=== PATIENT | female | born 2000 | race African-American/Black ===

== ENCOUNTER 2024-06-04 11:41 | Outpatient (RCR) | payer OTHER, SELFPAY ==
[2024-06-04 13:28] LABS: HCG Quantitative 62 mIU/mL
[2024-06-07 11:23] LABS: HCG Quantitative 239 mIU/mL
== END 2024-06-21 11:33 | disposition home or self-care (01) ==
LOC: LAB 11:41
PROVIDERS: PCP Internal Medicine; Visit Provider Obstetrics & Gynecology
DX: N92.6 Irregular menstruation, unspecified (principal); Z87.59 Personal history of other complications of pregnancy, childbirth and the puerperium
CPT/HCPCS: 36415; 84702

== ENCOUNTER 2024-06-30 15:48 | Outpatient (OUT) | payer OTHER, SELFPAY ==
--- NOTE | 2024-06-30 15:49 | US_ITS ---
The [address] [address] Patient Name: MALCOLM PARIS MRN: [id number] date: 2000 Sex: F Assigned Patient Location: Current Patient Location: Accession/Order Number: [id number] Exam Date: 06/30/2024 16:04 Report Date: 07/01/2024 04:22 At the request of: JOSE CARLOS OSORIO Procedure: US OB transvaginal EXAMINATION: US OB transvaginal HISTORY: Missed menses. Abdominal pain. COMPARISON: No relevant comparison available. FINDINGS: GESTATIONAL SAC: Present and normal appearing. YOLK SAC: Present and normal appearing. POLE: Present and normal appearing. CARDIAC: Present. UTERUS: Normal size and appearance. OVARIES: Right: Corpus lutein cyst versus simple cyst. Left: Corpus lutein versus complex cyst CERVIX: 4.5 cm in length and closed. CUL-DE-SAC: Normal. OTHER: None. AGE BY LMP: 6 weeks 6 days SAMINA BY LMP: 02/17/2025 AGE BY US CRL: 7 weeks 2 days SAMINA BY US CRL: 02/14/2025 US/US OB transvaginal IMPRESSION: 1. Single live intrauterine . Electronically authenticated by: SIMIN ALVARADO Date: 07/01/2024 04:22
== END 2024-06-30 15:49 | disposition home or self-care (01) ==
LOC: US 15:48
PROVIDERS: PCP Internal Medicine; Visit Provider Obstetrics & Gynecology
DX: Z34.91 Encounter for supervision of normal pregnancy, unspecified, first trimester (principal); Z3A.01 Less than 8 weeks gestation of pregnancy; N92.6 Irregular menstruation, unspecified; R10.9 Unspecified abdominal pain
CPT/HCPCS: 76817

== ENCOUNTER 2024-07-20 10:54 | Outpatient (OUT) | payer OTHER, SELFPAY ==
--- OUTSIDE RECORDS SUMMARY | 2024-07-20 11:00 | XMS_ITS | CCD ---
Author Organization [facility] Care Team Providers Care Trial Judge Name Role Phone ANA Riley Attending Provider [phone] Berenice Riley Attending Unavailable Berenice Riley Admitting Unavailable HIESTAND, DR POLI Muse Primary Care Unavailable GERGG ., DR BRANCH Admitting Unavailable GREGG ., DR BRANCH Attending Unavailable GREGG ., DR BRANCH Consulting Unavailable HIESTAND, DR POLI Muse Primary Care Unavailable YO VALENZUELA Admitting Unavailable YO VALENZUELA Attending Unavailable YO VALENZUELA Consulting Unavailable MAGDALENE, WINCHA Consulting Unavailable GREGG ., DR BRANCH Admitting Unavailable GREGG ., DR BRANCH Attending Unavailable HIESTAND, DR POLI Muse Primary Care Unavailable GREGG ., DR BRANCH Admitting Unavailable GREGG ., DR BRANCH Attending Unavailable GREGG ., DR BRANCH Consulting Unavailable HIESTAND, DR POLI Muse Primary Care Unavailable GREGG ., DR BRANCH Admitting Unavailable GREGG ., DR BRANCH Attending Unavailable GREGG ., DR BRANCH Consulting Unavailable HIESTAND, DR POLI Muse Primary Care Unavailable HIESTAND, DR POLI Muse Primary Care Unavailable GREGG ., DR BRANCH Admitting Unavailable GREGG ., DR BRANCH Attending Unavailable GREGG ., DR BRANCH Consulting Unavailable HIESTAND, DR POLI Muse Primary Care Unavailable GREGG ., DR BRANCH Admitting Unavailable GREGG ., DR BRANCH Attending Unavailable GREGG ., DR BRANCH Consulting Unavailable ZIEBER, DR SIMIN Parker Consulting Unavailable Bre Green Consulting Unavailable eBrenice Riley PA-C Admitting Unavailable Rosemary PEREZ, Berenice Tatum Attending Unavailable NILEESTXIMENA, POLI Muse Primary Care Unavailable Shaikh Noe MD Primary Care Provider SHAIKH NOE Attending Unavailable Allergies Allergy Classification Reported Allergen(s) Allergy Type Date of Onset Reaction(s) Facility (2 sources) Amoxicillin; Translations: [amoxicillin] Drug Allergy 1 [facility] (2 sources) Penicillin; Translations: [penicillin] Drug Allergy 1 [facility] (1 source) Vancomycin Drug Allergy 2 [facility] (1 source) Erythromycin Drug Allergy 4 Fever, Headache, Hives, Itching, Rash, Shortness of breath, Swelling [facility] (1 source) Penicillins Drug Intolerance 0 Hives, Itching, Rash, Swelling [facility] Medications Current Medications Medication Drug Class(es) Dates Sig (Normalized) Sig (Original) Progesterone 200 MG suppository (1 source) Start: 06-09-2024 End: 07-09-2024 Progesterone 200 MG suppository Indications: History of miscarriage Insert 200 mg into the vagina at bedtime Insert suppository vaginally every night at bedtime until 12 weeks gestation 30 suppository 2 06/09/2024 07/09/2024 Active topiramate 50 mg oral tablet (1 source) Start: 03-01-2024 End: 07-09-2024 take 1 tablet by mouth in the morning topiramate (Topamax) 50 MG tablet Indications: Chronic migraine w/o aura w/o status migrainosus, not intractable (CMS/HCC) Take 50 mg by mouth in the morning and 50 mg before bedtime. 60 tablet 03/01/2024 07/09/2024 Discontinued Problems Active Problems Problem Classification Problem Date Documented Da te Episodic/Chronic Coagulation and hemorrhagic disorders (1 source) Coagulation defect, unspecified; Translations: [COAGULATION DEFECT UNSPECIFIED] Onset: 02-06-2023 Chronic Female infertility (2 sources) Female infertility associated with anovulation; Translations: [Female infertility associated with anovulation] Onset: 02-08-2023 03-01-2024 Chronic Headache; including migraine (1 source) Migraine without aura, not refractory ; Translations: [Chronic migraine without aura, not intractable, without status migrainosus] Onset: 03-01-2024 03-01-2024 Chronic Menstrual disorders (8 sources) Irregular menstruation, unspecified; Translations: [Missed period] Onset: 02-04-2023 Chronic Other injuries and conditions due to external causes (4 sources) Encounter for examination and observation following other accident; Translations: [ENC EXAM AND OBSERVATION FOLLOW OT ACC] Onset: 01-06-2023 Episodic Other and delivery including normal (7 sources) Encounter for care and examination of lactating mother; Translations: [Encounter for supervision of normal , unspecified, first trimester] Onset: 01-08-2023 Episodic Spontaneous (4 sources) Complete or unspecified spontaneous without complication; Translations: [COMPLETE/UNS SPONT AB W/O COMP] Onset: 02-01-2023 Episodic Past or Other Problems Problem Classification Problem Date Documented Da te Episodic/Chronic Administrative/social admission (1 source) First encounter by subject; Translations: [Persons encountering health services in other specified circumstances] Onset: 03-01-2024 03-01-2024 Episodic Lymphadenitis (1 source) Lymphadenopathy; Translations: [Enlarged lymph nodes, unspecified] Onset: 03-01-2024 03-01-2024 Episodic Other female genital disorders (1 source) Recurrent loss; Translations: [Recurrent loss without current ] Onset: 06-30-2020 03-01-2024 Episodic Residual codes; unclassified (1 source) Family history of disorder; Translations: [Family history of other specified conditions] Onset: 03-01-2024 03-01-2024 Episodic Results Test Name Value Interpretation Reference Range Facility HCG ( test) Ql (U)o n 07-09-2024 Interpretation and review of laboratory results Abnormal [facility] Preg Test, Ur Positive [facility] Urinalysis macro (dipstick) panel (U)on 07-09-2024 Bilirubin, UA Negative Negative - 4(70) +++ mg/dL [facility] Blood, UA Negative Negative - 50 Carlos/mcL [facility] Clarity, UA Clear [facility] Color, UA Yellow [facility] Glucose, UA Negative Negative - 2000(110) ++++ mg/dL [facility] Interpretation and review of laboratory results Abnormal [facility] Ketones, UA Negative Negative - 160(16) ++++ mg/dL [facility] Leukocytes, UA Negative Negative - 500+++ Rod/mcL [facility] Nitrite, UA Negative Negative - Positive [facility] pH, UA 6.5 5 - 9 [facility] Protein, UA Positive Negative - 2000(20) ++++ mg/dL [facility] Comment on above: 100 Spec Grav, UA 1.03 1 - 1.03 [facility] Urobilinogen, UA 0.2 0.2 - 12 mg/dL [facility] DILUTE VILMA'S VIPER VENOM on 02-11-2023 DRVVT Confirm Seconds NIY Normal [facility] Comment on above: Result Comment: Test ing Not Indicated Performed By: #### D RVV #### [facility] [address] [address] [address] Sweta Arguelles DRVVT Ratio NIY Normal [facility] Comment on above: Result Comment: Test ing Not Indicated Performed By: #### D RVV #### [facility] [address] [address] [address] Sweta Arguelles DRVVT Screen Seconds 37.8 sec Normal [facility] Comment on above: Result Comment: Refe rence Range: <= 47.0 Performed By: #### D RVV #### [facility] [address] [address] [address] Sweta Arguelles FACTOR V LEIDEN MUTATION EMMIE LYSISon 02-06-2023 Factor V Leiden Comment Normal [facility] Comment on above: Result Comment: Resu lt: c.1601G>A (p.[id number]) - Not Detected . This result is not associated with an increased risk for venous thromboembolism. See Additional Clinical Information and Comments. Additional Clinical Information: Venous thromboembolism is a multifactorial disease influenced by genetic, environmental, and circumstantial risk factors. The c.1601G>A (p. [id number]) variant in the F5 gene, commonly referred to as Factor V Leiden, is a genetic risk factor for venous thromboembolism. Heterozygous carriers of this variant have a 6- to 8-fold increased risk for venous thromboembolism. Individuals homozygous for this variant (ie, with a copy of the variant on each chromosome) have an approximately 80-fold increased risk for venous thromboembolism. Individuals who carry both a c.*97G>A variant in the F2 gene and Factor V Leiden have an approximately 20-fold increased risk for venous thromboembolism. Risks are likely to be even higher in more complex genotype combinations involving the F2 c.*97G>A variant and Factor V Leiden (PMID: 68538801). Additional risk factors include but are not limited to: deficiency of protein C, protein S, or antithrombin III, age, male sex, personal or family history of deep vein thromboembolism, smoking, surgery, prolonged immobilization, malignant neoplasm, tamoxifen treatment, raloxifene treatment, oral contraceptive use, hormone replacement therapy, and . Management of thrombotic risk and thrombotic events should follow established guidelines and fit the clinical circumstance. This result cannot predict the occurrence or recurrence of a thrombotic event. . Comment: Genetic counseling is recommended to discuss the potential clinical implications of positive results, as well as recommendations for testing family members. . Genetic Coordinators are available for health care providers to discuss results at [phone]). . Test Details: Variant Analyzed: c.1601G>A (p. Tyx095Dlo), referred to as Factor V Leiden . Methods/Limitations: DNA analysis of the F5 gene (NM_000130.5) was performed by PCR amplification followed by restriction enzyme analysis. The diagnostic sensitivity is >99%. Results must be combined with clinical information for the most accurate interpretation. Molecular-based testing is highly accurate, but as in any laboratory test, diagnostic errors may occur. False positive or false negative results may occur for reasons that include genetic variants, blood transfusions, bone marrow transplantation, somatic or tissue-specific mosaicism, mislabeled samples, or erroneous representation of family relationships. . This test was developed and its performance characteristics determined by [facility]. It has not been cleared or approved by the Food and Drug Administration. . References: Glenn S, Shara AK, Beka R, Rossana WW, Adithya JH; [employer] Professional Practice and Guidelines Committee. Addendum: [employer] consensus statement on factor V Leiden mutation testing. Cassandra Med. 2020Nov 24. doi: 10.1038/z80556-565-11927-o. PMID: 61471007. . Duran SIMPSON. Factor V Leiden Thrombophilia. 1998February 02 (Updated 2017Sep 25). In: Kam MP, Jm HH, Irina RA, et al., editors. Kenny(Elena) (Internet). [place]): [facility], [place]; 7013-9090. Available from: https://www.ncbi.nlm.nih.gov/books/PKR1078/ . Catalino S, Shara AK, Kevin X, Yoel B, Silvia EB, Kalani P, Christa CS; [employer] Laboratory Shop Estimator Committee. Venous thromboembolism laboratory testing (factor V Leiden and factor II c.*97G>A), 2018 update: a technical standard of the [employer] and [employer] (ACMG). Cassandra Med. 2018 Aug;20(12):2397-6977. doi: 10.1038/t87285-870-9237-k. Epub 2017Jun 26. PMID: 17601434. Performed By: #### P REGQNT #### [facility] [address] [place] [address] Dr. Sweta Arguelles Reviewed by: Comment Normal [facility] Comment on above: Result Comment: Lloyd Calvert, PhD Director, Molecular Genetics Performed By: #### P REGQNT #### [facility] [address] [address] [address] Sweta Arguelles PROTEIN S, FUNCTIONALon 05-1 Protein S-Functional 104 % Normal 63-140 [facility] Comment on above: Result Comment: Prot ein S activity may be falsely increased (masking an abnormal, low result) in patients receiving direct Xa inhibitor (e.g., rivaroxaban, apixaban, edoxaban) or a direct thrombin inhibitor (e.g., dabigatran) anticoagulant treatment due to assay interference by these drugs. Performed By: #### P ROTSF #### [facility] [address] [address] [address] Sweta Arguelles Protein S-Functional 88 % Normal 63-140 [facility] Comment on above: Result Comment: Prot ein S activity may be falsely increased (masking an abnormal, low result) in patients receiving direct Xa inhibitor (e.g., rivaroxaban, apixaban, edoxaban) or a direct thrombin inhibitor (e.g., dabigatran) anticoagulant treatment due to assay interference by these drugs. Performed By: #### P ROTSF #### [facility] [address] [address] [address] Sweta Arguelles ANTITHROMBIN DEFICIENCY PROF on 02-05-2023 Antithrombin Activity 114 % Normal 75-135 [facility] Comment on above: Result Comment: Dire ct Xa inhibitor anticoagulants such as rivaroxaban, apixaban and edoxaban will lead to spuriously elevated antithrombin activity levels possibly masking a deficiency. Performed By: #### P ROTSF #### [facility] [address] [address] [address] Sweta Arguelles Antithrombin Antigen 93 % Normal 72-124 [facility] Comment on above: Result Comment: This test was developed and its performance characteristics determined by [facility]. It has not been cleared or approved by the Food and Drug Administration. Performed By: #### P ROTSF #### [facility] [address] [place] [address] Dr. Sweta Arguelles B2-GLYCOPROTEIN 1 AB IGAon 0 02-05-2023 Beta-2 Glycoprotein I Ab, IgM <9 Normal 0-32 [facility] Comment on above: Result Comment: The reference interval reflects a 3SD or 99th percentile interval, which is thought to represent a potentially clinically significant result in accordance with the International Consensus Statement on the classification criteria for definitive antiphospholipid syndrome (APS). J Thromb Haem 2006;4:295-306. Performed By: #### B GLYIGA #### [facility] [address] [address] [address] Sweta Arguelles Performed By: #### P REGQNT #### [facility] [address] [address] [address] Sweta Arguelles PROTEIN C FUNC ACTIVITYon Protein C-Functional 98 % Normal 73-180 [facility] Comment on above: Performed By: #### P REGQNT #### [facility] [address] [address] [address] Sweta Arguelles PREG QUANT HCGon 02-04-2023 HCG QUANT 7 mIU/mL Normal [facility] Comment on above: Performed By: #### P REGQNT #### [facility] [address] [place] [address] Dr. Sweta Arguelles HCG RANGE SEE BELOW Normal [facility] Comment on above: Result Comment: 5-50 0.2-1 WEEK 50-500 1-2 WEEKS 100-5,000 2-3 WEEKS 500-10,000 3-4 WEEKS 1,000-50,000 4-5 WEEKS 10,000-100,000 5-6 WEEKS 15,000-200,000 6-8 WEEKS 10,000-100,000 2-3 MONTHS Performed By: #### P REGQNT #### [facility] [address] [place] [address] Dr. Sweta Arguelles ANTICARDIOLIPIN AB (ALIX) IGG on 02-03-2023 Anticardiolipin Ab,IgG,Qn <9 Normal 0-14 [facility] Comment on above: Result Comment: Nega tive: <15 Indeterminate: 15 - 20 Low-Med Positive: >20 - 80 High Positive: >80 Performed By: #### P ROTSF #### [facility] [address] [place] [address] Dr. Sweta Arguelles ANTICARDIOLIPIN AB (ALIX) IGM on 02-03-2023 Anticardiolipin Ab,IgM,Qn 15 MPL U/mL Critically high 0-12 [facility] Comment on above: Result Comment: Nega tive: <13 Indeterminate: 13 - 20 Low-Med Positive: >20 - 80 High Positive: >80 Performed By: #### P ROTSF #### [facility] [address] [place] [address] Dr. Sweta Arguelles CBC AUTO DIFFon 02-01-2023 BASO # 0.0 103/ul Normal 0.0-0.1 [facility] Comment on above: Performed By: #### C BC #### [facility] [address] [place] [address] Dr. Sweta Arguelles Basophils/100 WBC (Bld) 0.7 % Normal 0.2-2.0 [facility] Comment on above: Performed By: #### C BC #### [facility] [address] [place] [address] Dr. Sweta Arguelles EO # 0.1 103/ul Normal 0.0-0.7 [facility] Comment on above: Performed By: #### C BC #### [facility] [address] [place] [address] Dr. Sweta Arguelles Eosinophils/100 WBC (Bld) 2.2 % Normal 0.9-7.0 [facility] Comment on above: Performed By: #### C BC #### [facility] [address] [place] [address] Dr. Sweta Arguelles Erythrocyte distribution width (RBC) [Ratio] 12.9 % Normal 11.0-15.0 [facility] Comment on above: Performed By: #### C BC #### [facility] [address] [place] [address] Dr. Sweta Arguelles Hematocrit (Bld) [Volume fraction] 36.1 % Normal 36.0-48.0 [facility] Comment on above: Performed By: #### C BC #### [facility] [address] [place] [address] Dr. Sweta Arguelles Hemoglobin (Bld) [Mass/Vol] 11.5 g/dL Critically low 12.0-16.0 [facility] Comment on above: Performed By: #### C BC #### [facility] [address] [place] [address] Dr. Sweta Arguelles IG # 0.01 10e3/ul Normal 0.00-0.03 [facility] Comment on above: Performed By: #### C BC #### [facility] [address] [place] [address] Dr. Sweta Arguelles IG % 0.2 % Normal 0.0-0.5 [facility] Comment on above: Performed By: #### C BC #### [facility] [address] [place] [address] Dr. Sweta Arguelles LYMPH # 1.6 103/ul Normal 1.2-3.8 [facility] Comment on above: Performed By: #### C BC #### [facility] [address] [place] [address] Dr. Sweta Arguelles Lymphocytes/100 WBC (Bld) 34.3 % Normal 20.5-60.0 [facility] Comment on above: Performed By: #### C BC #### [facility] [address] [place] [address] Dr. Sweta Arguelles MANUAL DIFF REQ NO Normal [facility] Comment on above: Performed By: #### C BC #### [facility] [address] [place] [address] Dr. Sweta Arguelles MCH (RBC) [Entitic mass] 29.3 pg Normal 26.7-34.0 [facility] Comment on above: Performed By: #### C BC #### [facility] [address] [place] [address] Dr. Sweta Arguelles MCHC (RBC) [Mass/Vol] 31.9 g/dL Normal 29.9-35.2 [facility] Comment on above: Performed By: #### C BC #### [facility] [address] [place] [address] Dr. Sweta Arguelles MCV (RBC) [Entitic vol] 91.9 fL Normal 81.0-99.0 [facility] Comment on above: Performed By: #### C BC #### [facility] [address] [place] [address] Dr. Sweta Arguelles MONO # 0.2 103/ul Critically low 0.3-0.8 [facility] Comment on above: Performed By: #### C BC #### [facility] [address] [place] [address] Dr. Sweta Arguelles Monocytes/100 WBC (Bld) 4.1 % Normal 1.7-12.0 [facility] Comment on above: Performed By: #### C BC #### [facility] [address] [place] [address] Dr. Sweta Arguelles NEUT # 2.7 103/ul Normal 1.4-6.5 [facility] Comment on above: Performed By: #### C BC #### [facility] [address] [place] [address] Dr. Sweta Arguelles Neutrophils/100 WBC (Bld) 58.5 % Normal 43.0-75.0 [facility] Comment on above: Performed By: #### C BC #### [facility] [address] [place] [address] Dr. Sweta Arguelles Platelet mean volume (Bld) [Entitic vol] 10.4 fL Normal 9.5-13.5 [facility] Comment on above: Performed By: #### C BC #### [facility] [address] [place] [address] Dr. Sweta Arguelles PLT 198 103/ul Normal 150-450 [facility] Comment on above: Performed By: #### C BC #### [facility] [address] [place] [address] Dr. Sweta Arguelles RBC 3.93 106/ul Critically low 4.20-5.40 [facility] Comment on above: Performed By: #### C BC #### [facility] [address] [place] [address] Dr. Sweta Arguelles WBC 4.6 103/ul Normal 4.0-11.0 [facility] Comment on above: Performed By: #### C BC #### [facility] [address] [place] [address] Dr. Sweta Arguelles FREE T4on 02-01-2023 Free T4 [Mass/Vol] 0.96 ng/dL Normal 0.76-1.46 [facility] Comment on above: Performed By: #### F T4 #### [facility] [address] [place] [address] Dr. Sweta Arguelles GLYCOHEMOGLOBIN A1Con 2022 ADA RECOMMENDATION SEE BELOW Normal [facility] Comment on above: Result Comment: ADA RECOMMENDED LIMIT 4.0 - 6.0 ADA THERAPEUTIC TARGET < 7.0 ACTION SUGGESTED > 7.0 Performed By: #### P ROTSF #### [facility] [address] [place] [address] Dr. Sweta Arguelles Glucose [Mass/Vol] 111 mg/dL Normal [facility] Comment on above: Performed By: #### P ROTSF #### [facility] [address] [address] [address] Sweta Arguelles HbA1c (Bld) [Mass fraction] 5.5 % Normal 4.5-6.2 [facility] Comment on above: Performed By: #### P ROTSF #### [facility] [address] [address] [address] Sweta Arguelles PREG QUANT HCGon 02-01-2023 HCG QUANT 17 mIU/mL Normal [facility] Comment on above: Performed By: #### P REGQNT #### [facility] [address] [place] [address] Dr. Sweta Arguelles HCG RANGE SEE BELOW Normal [facility] Comment on above: Result Comment: 5-50 0.2-1 WEEK 50-500 1-2 WEEKS 100-5,000 2-3 WEEKS 500-10,000 3-4 WEEKS 1,000-50,000 4-5 WEEKS 10,000-100,000 5-6 WEEKS 15,000-200,000 6-8 WEEKS 10,000-100,000 2-3 MONTHS Performed By: #### P REGQNT #### [facility] [address] [address] [address] Sweta Arguelles TSHon 02-01-2023 TSH 1.501 uIU/mL Normal 0.358-3.740 [facility] Comment on above: Performed By: #### P REGQNT #### [facility] [address] [place] [address] Dr. Sweta Arguelles Coding Summaryon 01-15-2023 Coding Summary HTMLBase 64 WmjbrnopZOp2kJn+PGhl YWQ+NI2HZIVsR36owMOg yX0LA7mGMI2TLQQRVZTU ZA6NKX0tuMI0JZdmU2Iz biAv XdkboXVkXI84ZNn4EQE8 dRnnKBzmnH9rsXIhO7p9 YlPsGX14lF34NLfoFGNa VzN5PzFvuezaaDWe H2ghFjOfmCCtQpe+PHRh YmxlIHdpZHRoPScxMDAl PePquLeoSC1bDp3sRQOs LWNvbGxhcHNlOiBj x1vuJLMpXVkeUS4wzHbm A8YttMN7XXBle5l5Tt82 dHI+VBPsJEC6gBtdYQpp t077EtNlm0zfZQT2 hESlXBheXHO9S88pn7N4 COMgXSUoPLC8bVO6cO8u hVosewhhZ6VsaULdQhB7 LXI1iCOgsK5jjLmu ccxbbR6nQvn+Y01ZXH0Q MQYMDM4XLfn5T2HwKqwd dHI+EO31REIgIL09qPUb kWNgq9hscNw0LyFi QSDmOCZ6tZjvOVtxd7We JTFuY79xzTEip2Q6IUMu xHniiNNxLbZkzQU7dI6l JYjkxqvat6xjluoi Ylkpz4katy00qT34X57p LKnmKBQnSKK0VUBhTVJj zRdbeo5lgB1yRs9+IDxj y5byk4xxzFe2BqDw AXPkgfDseWybYUO2k4Xh Gv15V7WiwGusf5TxEuc2 co09rSGgi0K3sFN8ZYin IGAvaQ2iZFqzEsI4 OGJdQdKevL91bYLcDVen Ji2nfXoekHwvCN3vWCXb jstjAFIymC7uOMAfeNBe iBevMT9cPBQuilfp y796GeOkIBZ7WJXgiDCo O7PqdF9hWtFyGQNfCTDx V5KurPPpFBuyT959OOcu QvJ3XGCgznJtG6Vr NXDziBdlJeZ7q8Y4Kr2K g4NwpywtNTP8JAnrLKF3 WzH5SkYpYyE6A9DhNkj2 WYYweUnyXU0zU4It TENsijjvgcxhqXM8KRYr BCRpbH10mUZbOPtbXe1o b1E7r513YLAuBNWssM70 Uk4lhNqoPETkjSWI hY2mkbzgq1tyhxvcJhHi VBAnTCi9TPw5WPFjiXdh KoDmHCK1PfW2ILL9uIMm pO9ynXoiwgqfoL1b Oyc+X43chQ6dPMV6UPT1 xmtmXIBepjTmHV74IE01 D7AdOqzgdVHnaTE+PGRp ooXfzFuvEU3kVoId f0eni7HjBRpxL2IiJYKf IJkvAxq2KHImTTI4gGM5 mN0cVPExSWyrs9F0yES1 B6SlivVqgq3ul2yf DQRpBWtgP41xrTRbg2G2 SYGsiKK6MFTsbRnhZiCu lT18Kwp+OEVmnYriv3Ky Oqfrn1yaw0eejTg5 IjMwJSIgdmFsaWduPSJ0 k4RqFk05U75dLIkpIMDw WHAaHPZuFBCvxFngzi2g hG4gDh7+PGNvbCB3 aWX8yV9nNOLkOuX9EQvf M081NlGmxULtKnbem4nh s8jllUk2SlXlNVNufqAg fSczRFD2k5EcMd17 X23bQXpdHFTcDQPiSBFv LDZfmErqjp7tjY1pDo4+ VY7dk2fxek24tU80hKD+ QYRyKUZ2aHzgRLxo WQFtqB1uARitOlS5AVGs XoJlpO17uDUlHZmbAc6i nDpspJocEQ4aOHUirprl u227RrEyb3hpMOWy pVDjURdhYZN1J38va1J2 PKQvSBNmMVY0xBG8xB4z bGlnbjogbGVmdDsgdmVy bGgeXAgxJGkbV889 IHRvcDsnPlBhdGllbnQg JjPlYLq4J8TqKmf8XJSf fRogWM1jdYLwFWphWr1l sJolpPuiOP7gCRDi kbbjt369BdFwi7caATCl yXEwLWymRBC4D37af0E2 VCQjYJBrIMY4qSB7hZ3b bGlnbjogbGVmdDsg nvWhbGquSBmwLNcnS938 IHRvcDsnPkJpcnRoIERh dPA0UQ11GB27uMLih8N3 mMR6F7JgUIXqjugw nspgaVW9AZLjXCPdwH60 Ot7apYjcMe0aJOKcFMR9 VWAtoHSrR4LiwY0aBkBp CELgNQAvC6RutQQb OOhvR967UNcaPzC3UQVr qoAhL6VnPOQncRoqEaG1 n0H3Ye3HT9F8LB86CE11 wBHvf2R2uBS5U6Rj ZNHtymundcvkpIY6NDXu BCMupQ75Ip3ofVphAp3y DTRjPYV5VBQqyAFoX0Ao pX5jJgEdDHMhWSTt Z1AaiLYrTUhiU172DOkd JqM0EHByjhXuK1SzBSGp eHobZbA2m9P9Iy0AJIk6 PU36HO81cDPuz3L4 hIE4J9SaUNZsgfvrrzwm hTH0HPTsDVInyP02Xg3r kYcdXw9pPNGwJRQ7ADVw dCFoS8OfbR8bQmFx QYKuLAWkU0UrnAWdMZsi Q124AVgxFjA5DXWyrwVn Z2MzIFAfpJxaZuF9h6T9 Mf8YYRLuKX22LEK5 mCB1RM71AD52U4VeAzts dGFibGU+PHRhYmxlIHdp ZHRoPScxMDAlJyBzdHls TI7eLz8eGSHpSTNd gSkpwVLeNmIgp3isSDVq NYlfYA4pvOsfA1BnxZQ8 MTFuy0s6Om62D66xZ3Rc dXA+ULPrxRJ6uXX5 tB9lPxWnEnA1KLizR865 UcExeHNjXeuih4qik4vn fEd6UrE4OXTjweNszWjb UIC4y3XfPl59S90w IHdpZHRoPSIxNSUiIHZh tCcfvn4eeI1cVh1+PGNv wXK2jEU9eN3hYzHwDcL8 HUpaR522IpBmnPQy Ipavx9mhs7tddTh5EkQm NZTnhsExnPpcLNR1v1Ce Bz86O0RctWzkz6SlIef2 ty14xOPxm0U4zEZ9 M2YiDMNronohvOAaqZsb DN4oKVMsrbqzWNPrfX4p SZOeR0b2GmAkUeB2JJfb X3SwmbO7VJIyuPEa GCunWJZ3O39hr9X8FRLy XDNdVDO6tGM5mP8tgXzs bjogbGVmdDsgdmVydGlj QLlgHGujB773NRNy bGmdUWEzpS9gCBCqiUWn gAeyAV6cZTOrhhhfVw5E TEVSVklERVMsIENPUkEg CJMPOPaZP802W8Hk Xfe3FDMoeJfrCY9yeAIl YFqbZm7zkTpgrBzjXU7z TCXigemuSVJxkZ3wWQJu dMIjoEdaWS2pBTAo uhpqq474LlFpTHZ3YNYk uSYvN4MevD3pOwOuRMCp YEQjC5MtfOCqNEzmI970 LHdtMdN9JRYseyQs C4TtJSImsYniMuL2t8Q0 Dx8tJs7sAd5iBJVtQT81 VI37pFUtn4M6hAS3L6Ol ZGRpbmctcmlnaHQ6 ZNFvLXHqwP52kACcOWiz Rz2my6R2k767YVSgBATq aJ46Gz7kiCvoRCDxfLLD vG1jacoft5wzkdqw OfVoAEXyQTt0XKb0XYPh wIfrPxSsGYS6BmK7MOQ4 oQRxlW0ziXsjickkeV0o Oyc+MjIgWWVhcnM8 H6YbQwy9NZVpcTpbLF7l sCYmPJfcDp4wvJlebJpy RV6rEVAomzasUCOlyY6d DGPxuBQxeLeaKF5v ZNQsfttmd535CdDbEVK4 RELoxLMlR8WscV2vYyCy SJEgSWQtL3QmzLCfWEhf R626GWqfFwK7LIJw xiZiM0EfORIalVlkXlD9 p7B4Cq1CPS8KFTA6G6Lu Bog9NVDkkFlkUF4rvPFg ZNjsEr7lhWrbeTyj CP2cFXMaubluFCLibU6b DRYmqGTauMpwWS9mDNKa hstcm814PrShVED3MBZp oAYqT5EseJ4fVhFb OBDnQMHmW4LnhSPgVHqo V384BOpdZtH8SULemvZp C4EtCGKviPloYeS1r0Z7 Ck3GbAIuR7KoN7b8 U0XgFelrjTY+WM42CWRl SO49eKNlmGYfw6pqzKt1 GpFvUDIqVUP0uAjsIWfd y2AtXZOkX54vjBGm h2X0LZViwPmplUOxHhSq aER7dH1fZSjzymywc1zr ibdjIbmin8qlxi94kM34 A51dUXxpZZCtATBa GBHgTPWieQltzm4pjK2p Ii8+NPTmsJO8gLU7kT7v PrPvEfC3ETjdR277RzSa pDOhEdwue9vdr2st wFf0MiXaAMMaifVoiSod QNA5r4ZdLd39N57eKVps ZHRoPSIyMCUiIHZhbGln on2vcZ5mIr4+PC9j t8bhus15wC94fJL+PHRk HUJ8nHqoDDmdWIJlvG6a KRxiLgG0NICoAaKehC90 eMLfIXjoUh9kdDnz cVtvAD5jSTWtceani172 BjIiy6kjHZDtmKMvARgx WLZ0V26nd9R6JKWvHIVl XNS9qFL3dE4tjXfp bjogbGVmdDsgdmVydGlj NBasTDgwX818DXQeqNcq MbUlmHYuN4fobzMKVL3x OjwvdGQ+PHRkIHN0 dJvmEKcxJOFpkP5dKQBp X8w0PoEmZbW6HRtyB5Lj iwR5OGNkvHAxPYJvbAJW pJ5bsolix2lnzalr ZfLcKQRlGDh0EEh0FUAo iFljEuUqACH9XkM9JLG3 iOBihQ8xsWwwmtwnrB7q Oyc+RklOOjwvdGQ+ BGFgICT0lIdbYRjlPNCw aK3fFBQmH0c4FuIgAyI7 VJwoH5BolwC5TRRnzOXa DPAzpDGXaX1tcbji f4bblvyrWyBuOZNaHOz5 KEn2OFIucRmsZaZqLEE0 SdM1BRR6hBAxiM2xfDee azxwlT7fCem+TVJO OjwvdGQ+SINtVHO0qJbh PLqbSHEwnH6eNQRnE4s4 VmZoOkH1TRphK4OwbvL1 IGJvbGQgMTBwdCBU mD7awzgfj3lkzpuyErJa EEIjJOx1GSs0TUGuyExn NbHpKKM8WpG8HKX1nPCm mR1riVsstghbuQ9c Oyc+ZTC1XOE5MR15OR70 R7NyJigfoAToyPF+PHRh YmxlIHdpZHRoPScxMDAl XjCjqQfzXB4lHk2c ZGV (more content not included)... [facility] Coding Queryon 01-13-2023 Coding Query I just wanted to double check you mean to use the diagnosis of spontaneous miscarriage because this diagnosis didn't sound definitive since the patient was going to get a repeat hcg and ultrasound in 48 hours. Can you please review and revise ONLY if you deem appropriate. Thanks. [Electronically Signed on: 01/15/2023 10:28 EDT] Rosemary ANABerenice Rc [Verified on: 01/15/2023 10:28 EDT] Rosemaryrajesh PEREZMaryrobb Tatum [Transcribed on: 01/13/2023 19:43 EDT] RR Normal [facility] Lab - [facility] Lab - AP Results [id number] #[id number] Normal [facility] Pathology Sendout Teston Pathology Send Out. See Report Normal [facility] Comment on above: Order Comment: produ cts of conception Performed By: #### 1 [id number], [id number], 6254125, 76919215, 5475373, 7853016556, 4517856996, 4591526152, 72386895 #### [facility] (DEFAULT) [address] [place] [address] .Auto Diff 1on 01-08-2023 Auto [place] % 4 % Normal 12 [facility] Comment on above: Performed By: #### 1 [id number], [id number], 5679995, 14629549, 5071743, 3908924906, 9753583030, 8160621373, 54711672 #### [facility] (DEFAULT) [address] [place] [address] Baso Abs# 0.0 x10 Normal 0.0-0.2 [facility] Comment on above: Performed By: #### 1 3428583, 4363241162, 1531527, 55961212, 0658685, 1265259678, 4056539285, 4702112216, 09449362 #### [facility] (DEFAULT) [address] [place] [address] 27612 Basophils/100 WBC (Bld) 0.5 % Normal 0.2-2.0 [facility] Comment on above: Performed By: #### 1 2753069, 3602417989, 9258971, 18223370, 6977065, 4177901064, 5498815284, 3267510009, 59300806 #### [facility] (DEFAULT) [address] [place] [address] 00069 Eos Abs# 0.1 x10 Normal 0.0-0.4 [facility] Comment on above: Performed By: #### 1 5103560, 6756841804, 0673895, 65603372, 7214916, 9367718935, 2661619864, 8176324767, 04074163 #### [facility] (DEFAULT) [address] [place] [address] 98447 Eosinophils/100 WBC (Bld) 1.7 % Normal 0.9-4.0 [facility] Comment on above: Performed By: #### 1 9544330, 8991513986, 8569237, 47522535, 4235132, 2549128249, 5126698261, 4673264927, 10245319 #### [facility] (DEFAULT) [address] [place] [address] 54815 Lymph Abs# 1.8 x10 Normal 1.3-2.9 [facility] Comment on above: Performed By: #### 1 0826476, 2271129191, 7840497, 40670986, 2819913, 6529964226, 6542854667, 5930201916, 74485034 #### [facility] (DEFAULT) [address] [place] [address] 82997 Lymphocytes/100 WBC (Bld) 32 % Normal 14-48 [facility] Comment on above: Performed By: #### 1 3716314, 4475376758, 0558699, 65256851, 8174843, 8700520191, 5975441445, 8574258110, 97163660 #### [facility] (DEFAULT) [address] [place] [address] [place] Abs# 0.3 x10 Normal 0.0-0.8 [facility] Comment on above: Performed By: #### 1 3472319, 1848639681, 5223397, 06683889, 7878252, 3361325975, 1685412749, 2225540925, 40457199 #### [facility] (DEFAULT) [address] [place] [address] Neut Abs# 3.5 x10 Normal 1.5-9.2 [facility] Comment on above: Performed By: #### 1 1785599, 9402781270, 0811560, 05293075, 4274363, 2712887009, 9825020898, 0478691385, 29808634 #### [facility] (DEFAULT) [address] [place] [address] Neutrophils/100 WBC (Bld) 61 % Normal 44-88 [facility] Comment on above: Performed By: #### 1 2764605, 1371906646, 7180050, 05788788, 5940711, 5519991725, 4777866783, 2344997127, 32448521 #### [facility] (DEFAULT) [address] [place] [address] ABORhon 01-08-2023 ABO and Rh group Nom (Bld) Hx Check: Not Found Anti-A: 4+ Anti-B: 0 Anti-D: 4+ DCon: NT A1: 0 B: 4+ ABORh Interp: A POS Invalid Interpretation Code [facility] Comment on above: Performed By: #### 1 5902881, 7509077484, 4532392, 66293651, 7301717, 5847914233, 9584391250, 2456560943, 32136955 #### [facility] (DEFAULT) [address] [place] [address] ABORh Retypeon 01-08-2023 ABO and Rh group Nom (Bld) Ordered by Discern. Anti-A: 4+ Anti-B: 0 Anti-D: 4+ DCon: NT A1: 0 B: 4+ ABORh Retype: A POS Invalid Interpretation Code [facility] Comment on above: Performed By: #### 1 3901097, 3280503249, 0861358, 05461041, 7951219, 1163974466, 5193656305, 8605115018, 55271426 #### [facility] (DEFAULT) [address] [place] [address] [facility] Standardon 01-08-2023 eGFR Non AA >60 Invalid Interpretation Code [facility] Comment on above: Performed By: #### 1 1486101, 5126150916, 7121596, 03713304, 1539614, 9489457201, 6452518397, 3632127125, 93449595 #### [facility] (DEFAULT) [address] [place] [address] 08775 Anion gap [Moles/Vol] 18.1 mmol/L Normal 5.0-19.0 [facility] Comment on above: Performed By: #### 1 5387764, 7476248645, 3589527, 26410826, 0780241, 3959913844, 9840878293, 4700514047, 54807957 #### [facility] (DEFAULT) [address] [place] [address] 50920 eGFR AA >60 Invalid Interpretation Code [facility] Comment on above: Performed By: #### 1 2906963, 9641255892, 3230173, 21804489, 7078740, 9499179656, 0712743575, 1128965229, 52404600 #### [facility] (DEFAULT) [address] [place] [address] 91140 Osmolality 280 mOsm/L Invalid Interpretation Code [facility] Comment on above: Performed By: #### 1 4623793, 6601118644, 2726380, 46489444, 7715209, 4076125059, 3471765585, 5014169967, 32343024 #### [facility] (DEFAULT) [address] [place] [address] 22061 Urea nitrogen/Creatinine [Mass ratio] 18.1 mg/mg High 4.6-16.2 [facility] Comment on above: Performed By: #### 1 8810155, 4389980381, 7396431, 95482043, 6602146, 9728995620, 8301354983, 7764800666, 27224872 #### [facility] (DEFAULT) [address] [place] [address] 40564 Calcium [Mass/Vol] 9.2 mg/dL Normal 8.9-10.3 [facility] Comment on above: Performed By: #### 1 8806824, 4659095962, 2680520, 74414216, 6878595, 7949728260, 0796332299, 6654259315, 82314494 #### [facility] (DEFAULT) [address] [place] [address] 85124 Chloride [Moles/Vol] 103 mmol/L Normal 101-111 [facility] Comment on above: Performed By: #### 1 0375660, 7435843649, 8090865, 71535196, 8181868, 6455400178, 9765159293, 5797156416, 79384158 #### [facility] (DEFAULT) [address] [place] [address] 88926 CO2 [Moles/Vol] 24 mmol/L Normal 21-32 [facility] Comment on above: Performed By: #### 1 7287680, 3111423360, 0846846, 94116298, 3166629, 7704655644, 8130052317, 9751037468, 17453431 #### [facility] (DEFAULT) [address] [place] [address] 22911 Creatinine [Mass/Vol] 0.66 mg/dL Normal 0.60-1.30 [facility] Comment on above: Performed By: #### 1 1727220, 4838922917, 9526460, 61062518, 0137637, 1485642943, 0737495270, 8804998974, 51423655 #### [facility] (DEFAULT) [address] [place] [address] 41969 Glucose [Mass/Vol] 89.0 mg/dL Normal 74.0-118.0 [facility] Comment on above: Performed By: #### 1 8733234, 8206825449, 5639632, 39120583, 9750436, 5890691749, 7803560220, 8261746578, 62009857 #### [facility] (DEFAULT) [address] [place] [address] 46898 Potassium [Moles/Vol] 4.1 mmol/L Normal 3.6-5.1 [facility] Comment on above: Performed By: #### 1 5858888, 7859271362, 8438331, 89520977, 8763353, 6381912854, 7439473911, 0702818027, 36415154 #### [facility] (DEFAULT) [address] [place] [address] 75454 Sodium [Moles/Vol] 141.0 mmol/L Normal 136.0-144.0 [facility] Comment on above: Performed By: #### 1 9162645, 6678437371, 4896641, 97736435, 5223712, 7058142517, 9997618008, 1168308341, 91647070 #### [facility] (DEFAULT) [address] [place] [address] 82311 Urea nitrogen [Mass/Vol] 12 mg/dL Normal 8-26 [facility] Comment on above: Performed By: #### 1 9306012, 7993073743, 1082261, 27419535, 6273962, 6541713450, 7408548338, 5562734650, 79060273 #### [facility] (DEFAULT) [address] [place] [address] 54361 CBC w/ Auto Diffon 3 Erythrocyte distribution width (RBC) [Ratio] 14.1 % Normal 11.5-15.0 [facility] Comment on above: Performed By: #### 1 5823974, 3866737161, 3528694, 28430975, 7099557, 9397082845, 6914046789, 5728616801, 54160251 #### [facility] (DEFAULT) [address] [place] [address] 44757 Hematocrit (Bld) [Volume fraction] 35.5 % Normal 33.7-40.4 [facility] Comment on above: Performed By: #### 1 5749088, 1522737947, 5160733, 66973688, 3586819, 9520613980, 3400664378, 0828761260, 53945649 #### [facility] (DEFAULT) [address] [place] [address] Hemoglobin (Bld) [Mass/Vol] 12.0 g/dL Normal 11.3-15.9 [facility] Comment on above: Performed By: #### 1 7053397, 5136315153, 6907394, 57855349, 5677780, 6388239099, 3227956589, 3805222066, 91991739 #### [facility] (DEFAULT) [address] [place] [address] Man Diff? Auto Invalid Interpretation Code [facility] Comment on above: Performed By: #### 1 2093575, 9015806853, 8398767, 36443216, 3749263, 7755487308, 9475883647, 3001618738, 56253557 #### [facility] (DEFAULT) [address] [place] [address] 47497 MCH (RBC) [Entitic mass] 30 pg Normal 24-34 [facility] Comment on above: Performed By: #### 1 2058613, 4365112454, 0399876, 14778955, 4178804, 2228493778, 4280744701, 4953385040, 82959651 #### [facility] (DEFAULT) [address] [place] [address] 35871 MCHC (RBC) [Mass/Vol] 34 g/dL Normal 26-37 [facility] Comment on above: Performed By: #### 1 6226617, 1210855648, 5701584, 70468083, 7630880, 8726523226, 0665161063, 3518920433, 40419882 #### [facility] (DEFAULT) [address] [place] [address] 05302 MCV (RBC) [Entitic vol] 89 fL Normal 81-100 [facility] Comment on above: Performed By: #### 1 3017485, 4148590872, 8162965, 18155049, 4948727, 7062618019, 2469017788, 7314291302, 23092892 #### [facility] (DEFAULT) [address] [place] [address] 37442 Platelet 229 x10 Normal 138-427 [facility] Comment on above: Performed By: #### 1 2710527, 6964081823, 4208533, 22070807, 7279485, 2410515694, 8212167982, 4803860340, 03526882 #### [facility] (DEFAULT) [address] [place] [address] 42890 Platelet mean volume (Bld) [Entitic vol] 8.1 fL Normal 6.3-10.2 [facility] Comment on above: Performed By: #### 1 5946805, 8950932060, 8685690, 54330146, 0811181, 6191017806, 7869402251, 1612070238, 02878169 #### [facility] (DEFAULT) [address] [place] [address] 12789 RBC 4.00 x10 Normal 3.70-5.30 [facility] Comment on above: Performed By: #### 1 3233990, 7042947349, 9460281, 85019049, 6569387, 8633951916, 7085962124, 5748240941, 45380316 #### [facility] (DEFAULT) [address] [place] [address] 84800 WBC 5.7 x10 Normal 3.5-10.5 [facility] Comment on above: Performed By: #### 1 7403348, 7349686888, 7624224, 02785151, 5897737, 9113348430, 2602156359, 7729967700, 80070910 #### [facility] (DEFAULT) [address] [place] [address] 43736 ED Clinical Summaryon 2022 ED Clinical Summary [facility] - Emergency Department [address] [place] [address] ED Clinical Summary PERSON INFORMATION Name: DOROTHY PARIS Age: 22 Years Sex: FEMALE : 2000 MRN: Acct#: Visit Reason: UC - Vaginal Bleeding: < or = 20 wk ; 9 WEEKS, FALL, VAGINAL BLEEDING, PELVIC CRAMP Arrival: 01/08/2023 10:22:53 Discharge: 01/08/2023 14:25:00 LOS: 000 04:03 Check In: 01/08/2023 10:22:53 Checkout:01/08/2023 14:25:00 Address: [address] [place] [address] PCP: POLI SHAFFER PROVIDER INFORMATION Provider Role Assigned Unassigned Berenice Riley PA-C ED PA 01/08/2023 10:26:14 Katiana RN, Katie Barrientos ED Nurse 01/08/2023 10:45:01 VITALS INFORMATION Vital Sign Triage Latest Temperature Tympanic Temperature Temporal Artery Pulse Rate 63 bpm 63 bpm O2 Sat 100 % 100 % Respiratory Rate 16 br/min 16 br/min Blood Pressure /90 mmHg /90 mmHg MEDICAL INFORMATION Medications Given: Allergy Information: penicillin; amoxicillin PHYSICIAN DOCUMENTATION Patient: DOROTHY PARIS Age: 22 years Sex: FEMALE : 2000 Associated Diagnoses: Fall (on) (from) other stairs and steps, initial encounter; Spontaneous miscarriage; UC - Vaginal Bleeding: < or = 20 wk Author: Breenice Riley PA-C Basic Information Time seen: Date & time 01/08/2023 10:38:00. History source: Patient. Arrival mode: Private vehicle. History limitation: None. History of Present Illness 22-year-old female who is 8 weeks based on her LMP presents for vaginal bleeding that started this morning. She states that she fell down 10 steps 2 days ago and was evaluated at [place] [facility] that day with an ultrasound and no findings. She started bleeding today and did not have bleeding couple days ago. She has some mild lower abdominal cramping. She has a history of miscarriage. Denies dizziness, headache, weakness, vision changes, back pain, dysuria, n/v/d, SOB or CP Review of Systems Additional review of systems information: All other systems reviewed and otherwise negative. Health Status Allergies: Allergic Reactions (Selected) Severity Not Documented Amoxicillin- No reactions were documented. Penicillin- No reactions were documented.. Medications: (Selected) Documented Medications Documented Multivitamins: PO, Daily, 0 Refill(s) progesterone compounding powder: 0 Refill(s). Past Medical/ Family/ Social History Surgical history: [place] tooth ([id number]). Ankle surgery Right ([id number]). Comments: 09/07/2018 9:[address] Family history: Diabetes mellitus Grandmother (Maternal) Asthma Brother Hypertension Mother . Social history: Social & Psychosocial Habits Alcohol 01/08/2023 Alcohol Use: Never Home/Environment 09/07/2018 Lives with: Father, Mother, Siblings Nutrition/Health 09/07/2018 Caffeine intake amount: coffee 2-3 x per/week Substance Abuse 01/08/2023 Substance use: Never Tobacco 09/02/2020 Smoking tobacco use: Never (less than 100 in l 01/08/2023 Smoking tobacco use: Never tobacco user Electronic Cigarette/Vaping 01/08/2023 Electronic Cigarette Use: Never . Problem list: Active Problems (2) Contusion of left heel Left ankle sprain . Physical Examination Vital Signs Vital Signs 01/08/2023 10:25 EDT Temperature Temporal 36.8 DegC Peripheral Pulse Rate 63 bpm Respiratory Rate 16 br/min Systolic Blood Pressure 131 mmHg Diastolic Blood Pressure 90 mmHg SpO2 100 % Oxygen Therapy Room air . General: Alert, no acute distress. Skin: Warm, dry, pink, intact. Head: Normocephalic, atraumatic. Neck: Supple, no tenderness. Eye: Extraocular movements are intact. Respiratory: Respirations are non-labored, Symmetrical chest wall expansion. Gastrointestinal: Soft, Nontender, Non distended, Normal bowel sounds. Back: Nontender, Normal range of motion, Normal alignment, no step-offs. Musculoskeletal: Normal ROM, normal strength, no tenderness, no swelling, no deformity. Neurological: Alert and oriented to person, place, time, and situation, No focal neurological deficit observed, CN II-XII intact, normal sensory observed, normal motor observed, normal speech observed, normal coordination observed. Psychiatric: Cooperative, appropriate mood & affect. Medical Decision Making Differential Diagnosis: Threatened , spontaneous , incomplete . Rationale: Blood type a positive. No significant lab abnormalities. Nurse called me in the room as patient has tissue in a paper towel that she just passed. This does appear to be products of conception. We did call over to Dr. Escobedo's office and he is in surgery and discussed the case with Bre Mcnair PA-C. We will send the proximal of conception down for POC testing is a send out and patient is to have a repeat hCG and ultrasound in 48 hours either here or with her [employer]. Afebrile, no (more content not included)... Normal [facility] ED Note - Provideron 023 ED Note - Provider Patient: DOROTHY PARIS Age: 22 years Sex: FEMALE : 2000 Associated Diagnoses: Fall (on) (from) other stairs and steps, initial encounter; Spontaneous miscarriage; UC - Vaginal Bleeding: < or = 20 wk Author: Rosemary PEREZ, Berenice Tatum Basic Information Time seen: Date & time 01/08/2023 10:38:00. History source: Patient. Arrival mode: Private vehicle. History limitation: None. History of Present Illness 22-year-old female who is 8 weeks based on her LMP presents for vaginal bleeding that started this morning. She states that she fell down 10 steps 2 days ago and was evaluated at [place] [facility] that day with an ultrasound and no findings. She started bleeding today and did not have bleeding couple days ago. She has some mild lower abdominal cramping. She has a history of miscarriage. Denies dizziness, headache, weakness, vision changes, back pain, dysuria, n/v/d, SOB or CP Review of Systems Additional review of systems information: All other systems reviewed and otherwise negative. Health Status Allergies: Allergic Reactions (Selected) Severity Not Documented Amoxicillin- No reactions were documented. Penicillin- No reactions were documented.. Medications: (Selected) Documented Medications Documented Multivitamins: PO, Daily, 0 Refill(s) progesterone compounding powder: 0 Refill(s). Past Medical/ Family/ Social History Surgical history: [place] tooth ([id number]). Ankle surgery Right ([id number]). Comments: 09/07/2018 9:[address] Family history: Diabetes mellitus Grandmother (Maternal) Asthma Brother Hypertension Mother . Social history: Social & Psychosocial Habits Alcohol 01/08/2023 Alcohol Use: Never Home/Environment 09/07/2018 Lives with: Father, Mother, Siblings Nutrition/Health 09/07/2018 Caffeine intake amount: coffee 2-3 x per/week Substance Abuse 01/08/2023 Substance use: Never Tobacco 09/02/2020 Smoking tobacco use: Never (less than 100 in l 01/08/2023 Smoking tobacco use: Never tobacco user Electronic Cigarette/Vaping 01/08/2023 Electronic Cigarette Use: Never . Problem list: Active Problems (2) Contusion of left heel Left ankle sprain . Physical Examination Vital Signs Vital Signs 01/08/2023 10:25 EDT Temperature Temporal 36.8 DegC Peripheral Pulse Rate 63 bpm Respiratory Rate 16 br/min Systolic Blood Pressure 131 mmHg Diastolic Blood Pressure 90 mmHg SpO2 100 % Oxygen Therapy Room air . General: Alert, no acute distress. Skin: Warm, dry, pink, intact. Head: Normocephalic, atraumatic. Neck: Supple, no tenderness. Eye: Extraocular movements are intact. Respiratory: Respirations are non-labored, Symmetrical chest wall expansion. Gastrointestinal: Soft, Nontender, Non distended, Normal bowel sounds. Back: Nontender, Normal range of motion, Normal alignment, no step-offs. Musculoskeletal: Normal ROM, normal strength, no tenderness, no swelling, no deformity. Neurological: Alert and oriented to person, place, time, and situation, No focal neurological deficit observed, CN II-XII intact, normal sensory observed, normal motor observed, normal speech observed, normal coordination observed. Psychiatric: Cooperative, appropriate mood & affect. Medical Decision Making Differential Diagnosis: Threatened , spontaneous , incomplete . Rationale: Blood type a positive. No significant lab abnormalities. Nurse called me in the room as patient has tissue in a paper towel that she just passed. This does appear to be products of conception. We did call over to Dr. Escobedo's office and he is in surgery and discussed the case with Bre Mcnair PA-C. We will send the proximal of conception down for POC testing is a send out and patient is to have a repeat hCG and ultrasound in 48 hours either here or with her [employer]. Afebrile, not tachycardic, tolerating PO and ambulating at baseline and hemodynamically stable at time of discharge. educated on when to return to ER. if any new or worsening sx, needs rechecked. answered all questions. pt in agreement with tx.. Orders Launch Orders Laboratory: ABORh (Order): Blood, Stat collect, 01/08/2023 10:39 EDT, Lab Collect BMP Standard (Order): Blood, Stat collect, 01/08/2023 10:39 EDT, Lab Collect hCG Quantitative (Order): Blood, Stat collect, 01/08/2023 10:39 EDT, Lab Collect CBC w/ Auto Diff (Order): Blood, Stat collect, 01/08/2023 10:39 EDT, Lab Collect Urinalysis with Culture, if indicated Standard (Order): Urine, Stat collect, 01/08/2023 10:39 EDT, Once, Stop date 01/08/2023 10:39 EDT, Nurse collect Radiology: US Transvaginal (Order): 01/08/2023 10:39 EDT Stat, 8 weeks preg, vaginal bleeding, Allow Modification Per Radiologist, Transport Mode: Cart US 1st Trimester (Order): 01/08/2023 10:39 EDT Stat, Pelvic Pain, Allow Modification Per Radiologist, Transport Mode: Stretcher, Launch Orders La (more content not included)... Normal [facility] ED Note-Nursingon 01-08-2023 ED Note-Nursing Patient arrives to the ED via private vehicle. Ambulated with a steady gait to ED room 8. Alert and oriented X4. C/O spotting and abdominal cramping. Patient reports she is currently 8 1/2-9 weeks . Patient reports falling down approximately 10 steps on Friday hitting her back. Reports getting checked out the day of and the ultrasound showed a heart beat. Normal [facility] ED Patient Summaryon 023 ED Patient Summary [facility] - Emergency Department [address] [place] [id number] PATIENT DISCHARGE INSTRUCTIONS Patient Information Name: DOROTHY PARIS Age: 22 Years Date of : 2000 Reason For Visit: UC - Vaginal Bleeding: < or = 20 wk ; 9 WEEKS, FALL, VAGINAL BLEEDING, PELVIC CRAMP Arrival Time: 01/08/2023 10:22:53 Primary Care Physician: POLI SHAFFER Attending Physician: Haris Prescott DO Comment: Visit Diagnosis: Diagnoses This Visit Fall (on) (from) other stairs and steps, initial encounter (W10.8XXA) Spontaneous miscarriage (O03.9) UC - Vaginal Bleeding: < or = 20 wk ([id number]) The Pharmacy at [facility] is open Friday through Friday from 9A to 6P and Friday and Friday from 9A to 5P Prescription Information: If you have been given a prescription for narcotics, seek immediate medical attention if you have any difficulty breathing or any sudden status changes such as confusion and sleepiness. If you or anyone you know is experiencing suicidal thoughts, mental health, alcohol and/or drug addiction problems; contact the [facility] 14/04 Crisis Hotline -Text 9ZWNQ bj [phone]. If you received any narcotics, sedation, or any other medication that causes drowsiness for the next 24 hours, unless otherwise directed: ? Do not drive a car. ? Do not operate machinery such as power tools, lawn mowers, drills, sewing machines, or stoves ? Avoid alcoholic beverages and drugs for allergies, nerves, or sleep ? Do not make important personal or business decisions or sign any legal documents With: Address: When: [employer] [address] [place] [address] Business (1) Within 1 to 2 days Comments: need repeat hcg and US in 48 hrs Return if symptoms worsen Call for follow up appointment With: Address: When: POLI SHAFFER [address] [place] [address] [employer] (1) Within 3 to 5 days Medication Information: The exam and treatment you received today in the [facility] Emergency Department were for an urgent problem and are not intended as complete care. It is important for you to follow up with a doctor, nurse practitioner, or physician?s assistant infant teacher for ongoing care. If your symptoms become worse or you do not improve as expected and you are unable to reach your usual health care provider, you should return to the Emergency Department, we are available 24 hours a day. For those patients who have received Radiology results, the interpretation of your X-ray as given to you by our Emergency Department physician is only a preliminary report. The Radiologist will review your films and if there is a change in the diagnosis you will be notified by phone. Please make sure you have provided a working phone number so we can reach you if necessary. In the event that you had a lab culture while you were a patient in the Emergency Department, you will be notified by phone if there is a need to change your antibiotic. Please make sure you have provided a working phone number so we can reach you if necessary. [facility] Emergency Department has provided you with a complete list of medications post discharge. Please inform your refinery operator alkylation/provider of your visit and for further instruction on these medications. Any specific questions regarding your chronic medications and dosages should be discussed with your primary care physician(s) and/or pharmacist. Additional medications on your home medication list not specifically addressed. Please contact the ordering physician if you have questions about these medications. multivitamin, ( Multivitamins) Oral every day. progesterone (progesterone compounding powder) Visit Information Allergies: Substance Reaction Symptoms Type Comments amoxicillin Drug penicillin Drug Vital Signs: Vitals and Measurements this Visit (last charted value for your 01/08/2023 visit) Vital Signs This Visit Temperature Temporal: 36.8 DegC Peripheral Pulse Rate: 63 bpm Respiratory Rate: 16 br/min Systolic Blood Pressure: 131 mmHg Diastolic Blood Pressure: 90 mmHg SpO2: 100 % Oxygen Therapy: Room air Measurements This Visit Height/Length Dosin.640 cm Height/Length Estimated: 167.640 cm Weight Dosin.970 kg Weight Estimated: 58.970 kg Problems List: Problem Onset Comments Contusion of left heel Left ankle sprain Patient Education Miscarriage A miscarriage is the loss of a before the 20th week of . Sometimes, a ends before a woman knows that she is . If you lose a , talk with your doctor about: ? Questions you have about the loss of your baby. ? How to work through your grief. ? Plans for future . What are the causes? Many times, the cause of this c (more content not included)... Normal [facility] Extra Redon 01-08-2023 Tube Collected Yes Invalid Interpretation Code [facility] Comment on above: Performed By: #### 1 [id number], [id number], [id number], [id number], 1888692, [id number], [id number], [id number], [id number] #### [facility] (DEFAULT) [address] [place] [address] Trell 01-08-2023 L Specimen: [id number] Received: 01/09/23 Status: LATANYA Cortes Num: [id number] Spec Type: Surgical Subm Dr: Berenice Riley PA-C Tissues: A Products of Conception - Spontaneous or Missed (POC) Procedures: LESTER/Melissa Vazquez/Hema L4 Age/ Patient Sex Location Account Attending Physician Dorothy Paris / [facility] [id number] Berenice Riley PA-C SPEC NUM: [id number] RECD: 01/09/23 STATUS: LATANYA AILYN NUM: [id number] SANJEEV: 01/08/23- SUBM DR: Berenice Riley PA-C ENTERED: 01/09/[address] [facility] DR: Reanna Dean SPEC TYPE: Surgical DEPT: MAG JOAQUIN ORDERED: HE/3, Gross/Micro L4 ORDERED: HE/3, Gross/Micro L4 Pathological Diagnosis Uterus, products of conception, curettage: Chorionic villi present, with hydropic changes. Focal possible part seen. Decidual tissue and inflammatory debris. Clinical Information 19 weeks, fall, vaginal bleeding, pelvic cramp Gross Description Received in formalin labeled with the patient's name, number and products of conception per requisition is a 3.5 x 3.0 x 1.3 cm stevens-mcfarland to red brown tissue no discrete parts are identified. Probable chorionic villi are identified.. Entirely submitted in two cassettes labeled A1-A2. Microscopic Description Two glass slides with H E stained material have been examined. Microscopic examination was performed at [facility]. The microscopic findings support the above pathologic diagnosis. Specimen: [id number] Received: 01/09/23 Status: LATANYA Ailyn Num: [id number] Spec Type: Surgical Subm Dr: Berenice Riley PA-C Tissues: A Products of Conception - Spontaneous or Missed (POC) Procedures: HE/3, Gross/Micro L4 Patient: Dorothy Paris [id number] (Continued) Specimen: [id number] Received: 01/09/23 (Continued) Signed (signature on file) Maik Duke MD (Michelle) 01/10/23 1408 Specimen: [id number] Received: 01/09/23 Status: LATANYA Cortes Num: [id number] Spec Type: Surgical Subm Dr: Berenice Riley PA-C Tissues: A Products of Conception - Spontaneous or Missed (POC) Procedures: Melissa DAMICO/Hema L4 Patient: Dorothy Paris [id number] (Continued) Specimen: [id number] Received: 01/09/23 (Continued) CPT Codes 29378 Specimen: [id number] Received: 01/09/23 Status: LATANYA Cortes Num: [id number] Spec Type: Surgical Subm Dr: Berenice Riley PA-C Tissues: A Products of Conception - Spontaneous or Missed (POC) Procedures: HE/3, Gross/Micro L4 Patient: Dorothy Paris [id number] (Continued) Signed (signature on file) Maik Duke MD (Michelle) 01/10/23 1408 [facility] UA [id number] 01-08-2023 UA Bacteria None [facility] Comment on above: Order Comment: Urina lysis Microscopic order added on by [employer] Expert Rules system. Performed By: #### 1 [id number], [id number], 9295140, 91209868, 0808493, [id number], 7715341603, [id number], [id number] #### [facility] (DEFAULT) [address] [place] [address] 46950 UA RBC 5-10 [facility] Comment on above: Order Comment: Urina lysis Microscopic order added on by [employer] Expert Rules system. Performed By: #### 1 [id number], [id number], 9513115, 64537304, 4471072, 0430328298, 4482463792, 5205715753, 42959177 #### [facility] (DEFAULT) [address] [place] [address] 11293 UA WBC None Seen [facility] Comment on above: Order Comment: Urina lysis Microscopic order added on by [employer] Expert Rules system. Performed By: #### 1 [id number], [id number], 6216224, 55729136, 1019237, 1946291172, 1919962349, 9931441156, 83361621 #### [facility] (DEFAULT) [address] [place] [address] 95500 UA w Culture if Ind Standard on 01-08-2023 Breakpoint UA [facility] Comment on above: Performed By: #### 1 [id number], [id number], 2954759, 02662915, 6581103, 7805341461, 6677383124, 6471504170, 40700951 #### [facility] (DEFAULT) [address] [place] [address] 13942 Color (U) Yellow Normal [facility] Comment on above: Performed By: #### 1 8799751, 6309385741, 1598628, 23821515, 4782711, 1804974341, 6240531028, 9516541969, 27529979 #### [facility] (DEFAULT) [address] [place] [address] 04217 Culture? No Normal [facility] Comment on above: Result Comment: Resu lt created by rule GL_MAGR_ADD_UA_CULT Result created by rule GL_MAGR_ADD_UA_CULT1 Performed By: #### 1 3945437, [id number], 2008456, 98821569, 1293946, 7060012423, 9930516764, 2618568069, 93144419 #### [facility] (DEFAULT) [address] [place] [address] 28437 Glucose (U) [Mass/Vol] Negative [facility] Comment on above: Performed By: #### 1 9747693, 3833488101, 4486142, 74715604, 0120152, 0486812109, 7141438301, 0459504224, 07257609 #### [facility] (DEFAULT) [address] [place] [address] 17299 Ketones Ql (U) Negative [facility] Comment on above: Performed By: #### 1 0035864, [id number], 5084205, 73240956, 6501325, 5486705333, 1151002319, 7789039897, 25072542 #### [facility] (DEFAULT) [address] [place] [address] 07680 Micro? Indicated Invalid Interpretation Code [facility] Comment on above: Result Comment: Resu lt created by rule GL_MAGR_ADD_UA_MICRO Performed By: #### 1 2126117, 8442851487, 5929657, 76287004, 7133096, 3287655582, 1090827337, 5647107644, 28948380 #### [facility] (DEFAULT) [address] [place] [address] 56291 UA Bilirubin Negative Normal [facility] Comment on above: Performed By: #### 1 4703363, 6523623249, 0108840, 06665470, 7332632, 0843966367, 7649759418, 2545605910, 69530563 #### [facility] (DEFAULT) [address] [place] [address] 34833 UA Blood MODERATE Abnormal NEGATIVE [facility] Comment on above: Performed By: #### 1 4813216, 9114730988, 9631072, 75108093, 0025547, 3843701364, 2975775952, 1232004677, 49142307 #### [facility] (DEFAULT) [address] [place] [address] 22884 UA Clarity CLEAR Normal CLEAR [facility] Comment on above: Performed By: #### 1 4529996, 1251839338, 4237408, 48752737, 5400145, 3179706949, 7992918582, 0581487861, 12134290 #### [facility] (DEFAULT) [address] [place] [address] 87751 UA Leuk Est Negative Normal NEGATIVE [facility] Comment on above: Performed By: #### 1 7212291, 4910613552, 3793113, 76387108, 7344385, 6380952583, 9619122495, 6673103963, 77997733 #### [facility] (DEFAULT) [address] [place] [address] 96092 UA Nitrite Negative Normal NEGATIVE [facility] Comment on above: Performed By: #### 1 9564829, 4112786290, 4634781, 90262917, 1242847, 8158888938, 9480718188, 7525655755, 66924720 #### [facility] (DEFAULT) [address] [place] [address] 37381 UA pH 7.0 Normal 5-8 [facility] Comment on above: Performed By: #### 1 6020333, 4121714611, 3924122, 39337291, 2732288, 3475579424, 7045407818, 9926027393, 95609224 #### [facility] (DEFAULT) [address] [place] [address] 48772 UA Protein Negative Normal NEGATIVE [facility] Comment on above: Performed By: #### 1 5219702, 4268015407, 6078976, 10496928, 2933392, 5797217932, 5180642179, 7206440501, 78902635 #### [facility] (DEFAULT) [address] [place] [address] 29911 UA Spec Grav 1.010 Normal 1.001-1.035 [facility] Comment on above: Performed By: #### 1 7207085, 5357488386, 1557272, 16594236, 9992902, 1829065985, 2591506951, 7320975262, 48144618 #### [facility] (DEFAULT) [address] [place] [address] 67095 UA Urobilinogen 0.2 mg/dL Normal 0.2-1.0 [facility] Comment on above: Performed By: #### 1 2535551, 6236232408, 1856005, 00108400, 8845906, 9005211957, 1727135124, 3885344086, 38517142 #### [facility] (DEFAULT) [address] [place] [address] 12886 Urine Source Clean Catch Normal [facility] Comment on above: Performed By: #### 1 7109738, 3423186976, 0229516, 20633253, 6740986, 7212453952, 8986918207, 9187171064, 51337433 #### [facility] (DEFAULT) [address] [place] [address] 20239 US 1st Trimesteron 01-08-2023 US 1st Trimester EXAM: US 1st Trimester HISTORY: Pelvic Pain TECHNIQUE: Multiple grayscale, color Doppler and spectral Doppler static images were obtained. COMPARISON: 01/06/2023. FINDINGS: A single intrauterine embryo is seen. There is an expected normal appearing decidual reaction. There is no evidence of subchorionic hemorrhage. Similar to the prior study there are small cystic spaces seen along the margin of the endometrium and myometrium and are nonspecific. Survey of the uterine wall and adnexa demonstrated no abnormality. Minimal fluid is seen in the endocervical canal. There is questionable identification of cardiac activity by visual inspection and ultrasound cine loops. Measurements: CRL 0.5 cm Heart rate: As above, not definitely defined. bpm EGA by ultrasound: 6 weeks 1 day EGA by LMP: 9 weeks 0 days SAMINA by ultrasound: 09/02/2023 SAMINA by LMP: 08/13/2023 IMPRESSION: 1. Single intrauterine gestation with date discrepancy as above. 2. Questionable cardiac activity. Recommend serial follow-up hCG and repeat ultrasound as viability is not definitely confirmed on this exam. Final Dictated by: Kehinde Clark MD Dictated DT/TM: 01/08/23 1:42 Signed (Electronic Signature): Kehinde Clark MD 01/08/23 1:49 pm Technologist: [facility] US Transvaginalon 01-08-2023 US Transvaginal EXAM: US 1st Trimester HISTORY: Pelvic Pain TECHNIQUE: Multiple grayscale, color Doppler and spectral Doppler static images were obtained. COMPARISON: 01/06/2023. FINDINGS: A single intrauterine embryo is seen. There is an expected normal appearing decidual reaction. There is no evidence of subchorionic hemorrhage. Similar to the prior study there are small cystic spaces seen along the margin of the endometrium and myometrium and are nonspecific. Survey of the uterine wall and adnexa demonstrated no abnormality. Minimal fluid is seen in the endocervical canal. There is questionable identification of cardiac activity by visual inspection and ultrasound cine loops. Measurements: CRL 0.5 cm Heart rate: As above, not definitely defined. bpm EGA by ultrasound: 6 weeks 1 day EGA by LMP: 9 weeks 0 days SAMINA by ultrasound: 09/02/2023 SAMINA by LMP: 08/13/2023 IMPRESSION: 1. Single intrauterine gestation with date discrepancy as above. 2. Questionable cardiac activity. Recommend serial follow-up hCG and repeat ultrasound as viability is not definitely confirmed on this exam. Final Dictated by: Kehinde Clark MD Dictated DT/TM: 01/08/23 1:42 Signed (Electronic Signature): Kehinde Clark MD 01/08/23 1:49 pm Technologist: PM Normal [facility] hCG Quantitativeon hCG Quantitative 70245.0 mIU/mL High 0.0-0.6 [facility] Comment on above: Result Comment: Post -Menopausal Reference Range is: 0.1-11.6 mIU/mL Performed By: #### 1 [id number], [id number], 2507490, 30544775, 3931362, 9000748084, 2955365278, 4745923030, 31718175 #### [facility] (DEFAULT) [address] [place] [address] US PREG TVon 01-06-2023 US PREG TV Obstetrical ultrasound, 1st trimester CLINICAL: fall today, patient. TECHNIQUE: Transabdominal and transvaginal obstetrical ultrasound was performed. FINDINGS: Comparison: Comparison to study 01/02/2023. UTERUS: A single intrauterine gestation sac is visualized. Mean gestational sac diameter is 1.41 cm. Yolk sac and pole identified. [place] rump length is 3.8 mm. heart rate of 90 beats per minute. OVARIES/ADNEXA: The right ovary measures 2.9 x 2.2 x 1.6 cm, with a complex thick-walled centrally cystic nodule measuring 1.5 x 1.1 cm that is likely the corpus luteum cyst. The left ovary measures 2.6 x 2.3 x 1.4 cm. Few tiny follicles seen in the left ovary. OTHER FINDINGS: Cervix is closed. Cervical length is 3.8 cm. There are numerous (greater than 15) small cysts clustered along the endometrium measuring up to 4 mm. There is no subchorionic hemorrhage. ULTRASOUND GESTATIONAL AGE AND ESTIMATED DATE OF CONFINEMENT: The estimated gestational age by ultrasound is 6 weeks 0 days with an estimated date of confinement by the ultrasound of 09/01/2023. IMPRESSION: 1. Single viable intrauterine gestation with yolk sac and pole identified. heart rate of 90 beats per minute. Estimated gestational age by ultrasound is 6 weeks 0 days with an estimated date of confinement by ultrasound of 09/01/2023. Follow-up ultrasound at 18-22 weeks' gestation for anatomy evaluation. 2. Negative for subchorionic hemorrhage. However, there are numerous (greater than 15) tiny cysts clustered along the endometrium measuring up to 4 mm in size. These endometrial cysts are nonspecific, could be related to endometriosis. 3. Closed cervix with cervical length of 3.8 cm. 4. Probable 1.5 cm corpus luteum cyst in right ovary. Electronically authenticated by: RUPESH DEL CASTILLO Date: 2023-01-06 18:06 Normal [facility] US PREG TV EXAMINATION: US PREG TV HISTORY: Irregular periods COMPARISON: No relevant comparison available. FINDINGS: GESTATIONAL SAC: Present and normal appearing. YOLK SAC: Present and normal appearing. POLE: Present and normal appearing. CARDIAC: Present. UTERUS: Normal size and appearance. OVARIES: Right: Normal. Left: Normal. CERVIX: 4.0 cm in length and closed. CUL-DE-SAC: Normal. OTHER: Several tiny anechoic cystic areas external to the endometrium and gestational sac, and a single hyperechoic area; nonspecific. Consider follow-up. AGE BY LMP: 8 weeks 1 day SAMINA BY LMP: 08/13/2023 AGE BY US CRL: 5 weeks 6 days SAMINA BY US CRL: 08/29/2023 IMPRESSION: 1. Single live intrauterine with growth detailed above. Electronically authenticated by: SIMIN ALVARADO Date: 2023-01-05 23:11 Normal [facility] PROGESTERONEon 12-05-2022 Progesterone 40.4 ng/mL Normal [facility] Comment on above: Result Comment: Foll icular phase 0.1 - 0.9 Luteal phase 1.8 - 23.9 Ovulation phase 0.1 - 12.0 First trimester 11.0 - 44.3 Second trimester 25.4 - 83.3 Third trimester 58.7 - 214.0 Postmenopausal 0.0 - 0.1 Performed By: #### P TANNER #### [facility] [address] [place] [address] Dr. Sweta Arguelles PREG QUANT HCGon 12-04-2022 HCG QUANT 96 mIU/mL Normal [facility] Comment on above: Performed By: #### P REGQNT #### [facility] [address] [place] [address] Dr. Sweta Arguelles HCG RANGE SEE BELOW Normal [facility] Comment on above: Result Comment: 5-50 0.2-1 WEEK 50-500 1-2 WEEKS 100-5,000 2-3 WEEKS 500-10,000 3-4 WEEKS 1,000-50,000 4-5 WEEKS 10,000-100,000 5-6 WEEKS 15,000-200,000 6-8 WEEKS 10,000-100,000 2-3 MONTHS Performed By: #### P REGQNT #### [facility] [address] [place] [address] Dr. Sweta Arguelles PROGESTERONEon 12-03-2022 Progesterone 21.8 ng/mL Normal [facility] Comment on above: Result Comment: Foll icular phase 0.1 - 0.9 Luteal phase 1.8 - 23.9 Ovulation phase 0.1 - 12.0 First trimester 11.0 - 44.3 Second trimester 25.4 - 83.3 Third trimester 58.7 - 214.0 Postmenopausal 0.0 - 0.1 Performed By: #### P ROTSF #### [facility] [address] [place] [address] Dr. Sweta Arguelles PREG QUANT HCGon 12-02-2022 HCG QUANT 36 mIU/mL [facility] Comment on above: Performed By: #### P REGQNT #### [facility] [address] [place] [address] Dr. Sweta Arguelles HCG RANGE SEE BELOW Normal [facility] Comment on above: Result Comment: 5-50 0.2-1 WEEK 50-500 1-2 WEEKS 100-5,000 2-3 WEEKS 500-10,000 3-4 WEEKS 1,000-50,000 4-5 WEEKS 10,000-100,000 5-6 WEEKS 15,000-200,000 6-8 WEEKS 10,000-100,000 2-3 MONTHS Performed By: #### P REGQNT #### [facility] [address] [place] [address] Dr. Sweta Arguelles PROGESTERONEon 11-07-2022 Progesterone 0.8 ng/mL Normal [facility] Comment on above: Result Comment: Foll icular phase 0.1 - 0.9 Luteal phase 1.8 - 23.9 Ovulation phase 0.1 - 12.0 First trimester 11.0 - 44.3 Second trimester 25.4 - 83.3 Third trimester 58.7 - 214.0 Postmenopausal 0.0 - 0.1 Performed By: #### P REGQNT #### [facility] [address] [address] [address] Sweta Arguelles PREG QUANT HCGon 11-06-2022 HCG QUANT <1 Normal [facility] Comment on above: Performed By: #### P REGQNT #### [facility] [address] [address] [address] Sweta Arguelles HCG RANGE SEE BELOW Normal [facility] Comment on above: Result Comment: 5-50 0.2-1 WEEK 50-500 1-2 WEEKS 100-5,000 2-3 WEEKS 500-10,000 3-4 WEEKS 1,000-50,000 4-5 WEEKS 10,000-100,000 5-6 WEEKS 15,000-200,000 6-8 WEEKS 10,000-100,000 2-3 MONTHS Performed By: #### P REGQNT #### [facility] [address] [id number] [address] Sweta Arguelles Vital Signs Date Time Vital Sign Value Performing Clinician Faci lity 07-09-2024 10:01-0400 Body mass index (BMI) [Ratio] 23.34 kg/m2 [facility] 07-09-2024 10:01-0400 Body weight 63.[address] [facility] 07-09-2024 10:01-0400 Diastolic blood pressure 72 mm[Hg] [facility] 07-09-2024 10:01-0400 Systolic blood pressure 118 mm[Hg] [facility] Nurse [facility] Encounters Encounter Date Encounter Type Care Provider Facility Start: 07-09-2024 End: 07-09-2024 Office outpatient visit 5 minutes [facility] Nurse [facility] Comment on above: GA: 8w1d Start: 07-09-2024 End: 07-09-2024 ambulatory SHAIKH VIOLETTA Not Available Start: 03-01-2024 End: 03-01-2024 ambulatory VIOLETTA Not Available Start: 02-12-2023 End: 02-12-[address] POWER ESCOBEDO . Facility:[facility] Start: 02-04-2023 End: 02-05-[address] POWER ESCOBEDO . Facility:[facility] Start: 02-01-2023 End: 02-02-[address] POLI SHAFFER Facility:[facility] Start: 01-08-2023 End: 01-08-2023 ambulatory Berenice Riley Facility:[facility] Start: 01-08-2023 End: 01-08-2023 ambulatory ANA Riley Work Phone: [facility] Work Phone: Start: 01-08-2023 End: 01-08-2023 Departed Referred ANA Riley Work Phone: [facility] Start: 01-08-2023 End: 01-08-2023 Emergency department patient visit Bre Xu SARAH Facility:[facility] Start: 01-06-2023 End: 01-06-[address] POLI SHAFFER Facility:[facility] Start: 01-02-2023 End: 01-03-[address] POLI SHAFFER Facility:[facility] Start: 12-02-2022 End: 12-20-[address] POLI SHAFFER Facility:[facility] Start: 11-06-2022 End: 11-07-[address] POWER ESCOBEDO . Facility:[facility] Procedures Date Procedure Procedure Detail Performing Clinician Start: 07-09-2024 Urnls dip stick/tabl et rgnt non-auto w/o micrscp Power Escobedo DO Work Phone: Plan of Treatment Date Care Activity Detail Author Start: 08-09-2024 End: 08-09-2024 Patient encounter procedure 08/09/2024 10:50 AM EST Routine [facility] [address] [place] [address] Power Escobedo [address] [place] [address] [facility] Start: 07-09-2024 End: 07-09-2025 ABO/Rh ABO/Rh Lab Routine Missed menses , unspecified gestational age Expected: 07/09/2024 (Approximate), Expires: 07/09/2025 [facility] Healthcare Comment on above: Expected: 07/09/2024 (Approximate), Expires: 07/09/2025 Start: 07-09-2024 End: 07-09-2025 Blood type and Indirect antibody screen panel - Blood Type and screen Lab Routine Missed menses , unspecified gestational age Expected: 07/09/2024 (Approximate), Expires: 07/09/2025 [facility] Healthcare Work Phone: Comment on above: Expected: 07/09/2024 (Approximate), Expires: 07/09/2025 Start: 07-09-2024 End: 07-09-2025 Drugs of abuse panel - Urine by Screen method Rapid drug screen, urine Lab Routine , unspecified gestational age Encounter for supervision of normal first in first trimester Expected: 07/09/2024 (Approximate), Expires: 07/09/2025 [facility] Healthcare Comment on above: Expected: 07/09/2024 (Approximate), Expires: 07/09/2025 Start: 05-23-2024 Influenza vaccination Influenza Vacc ine (#1) [facility] Healthcare Bacteria identified in Urine by Culture Urine culture Microbiology Routine Missed menses Ordered: 07/09/2024 [facility] Healthcare Comment on above: Ordered: 07/09/2024 CBC W Auto Different ial panel - Blood CBC and differential Lab Routine Missed menses , unspecified gestational age Ordered: 07/09/2024 [facility] Healthcare Comment on above: Ordered: 07/09/2024 Hemoglobin A1c/Hemoglobin.total in Blood Hemoglobin A1c Lab Routine Missed menses , unspecified gestational age Ordered: 07/09/2024 [facility] Healthcare Comment on above: Ordered: 07/09/2024 Hepatitis B virus surface Ag [Presence] in Serum or Plasma by Immunoassay Hepatitis B surface antigen Lab Routine Missed menses , unspecified gestational age Ordered: 07/09/2024 [facility] Comment on above: Ordered: 07/09/2024 Hepatitis C virus Ab [Presence] in Serum or Plasma by Immunoassay Hepatitis C antibody Lab Routine Missed menses , unspecified gestational age Ordered: 07/09/2024 [facility] Comment on above: Ordered: 07/09/2024 HIV-1/HIV-2 antigen/antibody combination immunoassay HIV-1 and HIV-2 antibodies Lab Routine Missed menses , unspecified gestational age Ordered: 07/09/2024 [facility] Comment on above: Ordered: 07/09/2024 Reagin Ab [Presence] in Serum by RPR RPR Lab Routine Missed menses , unspecified gestational age Ordered: 07/09/2024 [facility] Comment on above: Ordered: 07/09/2024 Rubella antibody, IgG Rubella an tibody, IgG Lab Routine Missed menses , unspecified gestational age Ordered: 07/09/2024 [facility] Comment on above: Ordered: 07/09/2024 Payers Date Payer Category Payer Private Health Insurance [facility] [id number] 2023 Private Health Insurance [id number] 2023 Self-pay [id number] 2023 Unknown [facility] 2000 Unknown [id number] 593 2000 Unknown [id number]. 593 2000 Unknown [id number]. 593 2000 Unknown [id number] [id number]. 593 2000 Unknown [id number] [id number]. 593 2000 Unknown [id number] [id number]. 593 2000 Unknown [id number] [id number]. 593 2000 Unknown [id number] [id number]. 718 2000 Unknown [id number] [id number]. 1259 2000 Unknown [id number] [id number]. 1259 1959 Unknown [id number] 1959 Unknown [id number] Social History Date Type Detail Facility Tobacco smoking status VTIS Unknown if ever smoked [facility] Work Phone: Start: 2000 Sex Assigned At Female [facility] Start: 03-01-2024 Tobacco smoking status VTIS Never smoked tobacco [facility] Start: 03-01-2024 Tobacco use and exposure Smokeless tobacco non-user [facility] Start: 07-09-2024 Alcoholic beverage intake Lifetime non-drinker (finding) [facility] Start: 03-01-2024 History of Social function [facility] Start: 03-01-2024 Tobacco use panel [facility] Start: 05-27-2024 [facility] Start: 02-29-2024 Gender identity Identifies as female gender (finding) [facility] NEGATED: Highlighted rowStart: NINF History of tobacco use Passive smoker [facility] History of Present illness Narrative 07-09-2024 Jo Ann Benavides - 07/09/2024 10:00 AM EDT Note Date & Type Note Facility 07-09-2024 History of Presen t illness Narrative Reason for Appointment: Patient ID: Dorothy Paris is a 24 y.o. female who presents for Initial Visit Patient presents today for a Nurse OB Intake appointment. Patient is 8w1d with a Estimated Date of Delivery: 02/17/25 OB History Para Term AB Living 9 1 1 7 1 SAB IAB Ectopic Multiple Live Births 7 1 # Outcome Date GA Lbr Greg/2nd Weight Sex Type Anes PTL Lv 9 Current 8 01/2024 7 SAB 01/16/23 6 2022 5 Term 2022 M Vag-Spont RADHA 4 2019 3 2019 2 2019 1 2019 Current Medications: has a current medication list which includes the following prescription(s): progesterone. Medical History: Active Ambulatory Problems Diagnosis Date Noted Family history of recurrent miscarriage 03/01/2024 Female infertility associated with anovulation 03/01/2024 History of recurrent miscarriages 06/30/2020 Menorrhagia with regular cycle 03/01/2024 Dysmenorrhea 03/01/2024 Lymph node enlargement 03/01/2024 Chronic migraine w/o aura w/o status migrainosus, not intractable ([facility]) 03/01/2024 Establishing care with new doctor, encounter for 03/01/2024 Resolved Ambulatory Problems Diagnosis Date Noted No Resolved Ambulatory Problems No Additional Past Medical History Family History Problem Relation Name Age of Onset Thyroid cancer Mother No Known Problems Father Social History Tobacco Use Smoking status: Never Passive exposure: Never Smokeless tobacco: Never Vaping Use Vaping status: Never Used Substance Use Topics Alcohol use: Never Drug use: Never Past Surgical History: Procedure Laterality Date BACK SURGERY 2019 Allergies Allergen Reactions Erythromycin Fever, Headache, Hives, Itching, Rash, Shortness of breath and Swelling Penicillins Hives, Itching, Rash and Swelling Vitals: Estimated body mass index is 23.34 kg/m as calculated from the following: Height as of 03/01/24: 5' 5 . Weight as of this encounter: 140 lb 4 oz. BP: 118/72 Patient's last menstrual period was 05/13/2024. Assessment/Plan Diagnoses and all orders for this visit: Missed menses - Type and screen; Future - ABO/Rh; Future - CBC and differential - Hemoglobin A1c - RPR - Rubella antibody, IgG - Hepatitis B surface antigen - Hepatitis C antibody - HIV-1 and HIV-2 antibodies - Urine culture - POCT , urine manually resulted - POCT urinalysis dipstick manually resulted , unspecified gestational age - Type and screen; Future - ABO/Rh; Future - CBC and differential - Hemoglobin A1c - RPR - Rubella antibody, IgG - Hepatitis B surface antigen - Hepatitis C antibody - HIV-1 and HIV-2 antibodies - Rapid drug screen, urine; Future Encounter for supervision of normal first in first trimester - Rapid drug screen, urine; Future Nurse Note: OB Intake: Patient presents today for first OB visit. Patients history has been reviewed in great detail including any potential risks. Patient signed consent forms and patient desires testing in both trimesters. Patient currently has no complaints and has been advised to drink 6-8 glasses of water a day, eat no raw or undercooked meat, and stay away from [facility]. Patient has also been advised to not change litter boxes and eat 6 small meals a day. Patient has been consulted regarding the do's and don'ts of . Patient was given labs and all questions and concerns were answered. Follow Up: Patient is to return in 4 weeks for routine OB appointment. Follow Up: Patient is to have labs drawn at directed and return to office for initial OB appointment with provider. Patient may call office as needed with any concerns or questions. Nurse Visit Completed by: Jo Ann Benavides documented in this encounter [facility] Clinical Note 01-08-2023 Note Date & Type Note Facility 01-08-2023 Note Education Materials Obstetrics and Gynecology Miscarriage A miscarriage is the loss of a before the 20th week of . Sometimes, a ends before a woman knows that she is . If you lose a , talk with your doctor about: ? Questions you have about the loss of your baby. ? How to work through your grief. ? Plans for future . What are the causes? Many times, the cause of this condition is not known. What increases the risk? These things may make a woman more likely to lose a : Certain health conditions ? Conditions that affect hormones, such as: ? Thyroid disease. ? Polycystic ovary syndrome. ? Diabetes. ? A disease that causes the body's disease-fighting system to attack itself by mistake. ? Infections. ? Bleeding problems. ? Being very overweight. Lifestyle factors ? Using products that have tobacco or nicotine in them. ? Being around tobacco smoke. ? Having alcohol. ? Having a lot of caffeine. ? Using drugs. Problems with reproductive organs or parts ? Having a cervix that opens and thins before your due date. The cervix is the lowest part of your womb. ? Having Asherman syndrome, which leads to: ? Scars in the womb. ? The womb being abnormal in shape. ? Growths (fibroids) in the womb. ? Problems in the body that are present at . ? Infection of the cervix or womb. Personal or health history ? Injury. ? Having lost a before. ? Being younger than age 18 or older than age 35. ? Being around a harmful substance, such as radiation. ? Having lead or other heavy metals in: ? Things you eat or drink. ? The air around you. ? Using certain medicines. What are the signs or symptoms? ? Blood or spots of blood coming from the vagina. You may also have cramps or pain. ? Pain or cramps in the belly or low back. ? Fluid or tissue coming out of the vagina. How is this treated? Sometimes, treatment is not needed. If you need treatment, you may be treated with: ? A procedure to open the cervix more and take tissue out of the womb. ? Medicines. You may get a shot of medicine called Rho(D) immune globulin. Follow these instructions at home: Medicines ? Take egsl-jxh-zjrtfnk and prescription medicines only as told by your doctor. ? If you were prescribed antibiotic medicine, take it as told by your doctor. Do not stop taking it even if you start to feel better. Activity ? Rest as told by your doctor. Ask your doctor what activities are safe for you. ? Have someone help you at home during this time. General instructions ? Watch how much tissue comes out of the vagina. ? Watch the size of any blood clots that come out of the vagina. ? Do not have sex or douche until your doctor says it is okay. ? Do not put things, such as tampons, in your vagina until your doctor says it is okay. ? To help you and your partner with grieving: ? Talk with your doctor. ? See a counselor. ? When you are ready, talk with your doctor about: ? Things to do for your health. ? How you can be healthy if you get again. ? Keep all follow-up visits. Where to find more information ? [employer]: acog.org ? [place] Department of Health and Human Services Office of Women's Health: [facility] facilitya.gov/hadpon-iehzzi-vbiazx Contact a doctor if: ? You have a fever or chills. ? There is bad-smelling fluid coming from the vagina. ? You have more bleeding. ? Tissue or clots of blood come out of your vagina. Get help right away if: ? You have very bad cramps or pain in your back or belly. ? You soak more than 2 large pads in an hour for more than 2 hours. ? You get light-headed or weak. ? You faint. ? You feel sad, and you have sad thoughts a lot of the time. ? You think about hurting yourself. Get help right awayif you feel like you may hurt yourself or others, or have thoughts about taking your own life. Go to your nearest emergency room or: ? Call your local emergency services (911 in the [place] ? Call the National Suicide Prevention Lifeline at . This is open 24 hours a day. ? Text the Crisis Text Line at 581082. Summary ? A miscarriage is the loss of a before the 20th week of . Sometimes, a ends before a woman knows that she is . ? Follow instructions from your doctor about medicines and activity. ? To help you and your partner with grieving, talk with your doctor or a counselor. ? Keep all follow-up visits. This information is not intended to replace advice given to you by your health care provider. Make sure you discuss any questions you have with your health care provider. Document Revised: 03/09/2021 Document Reviewed: 03/09/2021 Elsevier Patient Education ? 2021 [employer] [facility] Evaluation note Note Date & Type Note Facility Evaluation note No assessment information availa [facility] Work Phone: Evaluation note Note Date & Type Note Facility Evaluation note Diagnosis Lymph node enlargement- Primary Enlargement of lymph nodes Chronic migraine w/o aura w/o status migrainosus, not intractable ([facility]) Establishing care with new doctor, encounter for Missed menses , unspecified gestational age Encounter for supervision of normal first in first trimester documented in this encounter [facility] Summary Purpose Family History No Family History Records FoundNo Family History Records FoundNo Family History Records FoundNo Family History Records Found Advance Directives No Advanced Directives Records FoundNo Advanced Directives Records FoundNo Advanced Directives Records FoundNo Advanced Directives Records Found Additional Source Comments Care Teams (unrecognized sec tion and content) Team Status: Inactive Member Role Status Dates Berenice Riley PA-C Attending Provider Active Trial Judge Relationship Specialty Start Date End Date Shaikh Noe MD [address] [place] [address] PCP - General Internal Medicine 03/01/24 Goals (unrecognized section and content) Goals may be documented in a n alternate section INFORMATION SOURCE (unrecogn ized section and content) DATE CREATED AUTHOR 01/10/2023 [facility] DATE CREATED AUTHOR AUTHOR'S ORGANIZ ATION 02/28/2023 [facility] DATE CREATED AUTHOR AUTHOR'S ORGANIZ ATION 08/02/2023 [facility] DATE CREATED AUTHOR AUTHOR'S ORGANIZ ATION 07/11/2024 [facility] EPIC Reason for Visit (unrecogniz ed section and content) Reason Comments Initial Visit FOR RECORDS PERTAINING TO PATIENTS WHO ARE OR HAVE BEEN ENROLLED IN A CHEMICAL DEPENDENCY/SUBSTANCEABUSE PROGRAM, SOME INFORMATION MAY BE OMITTED. This clinical summary was aggregated from multiple sources. Caution should be exercised in using it in the provision of clinical care. This summary normalizes information from multiple sources, and as a consequence, information in this document may materially change the coding, format and clinical context of patient data. In addition, data may be omitted in some cases. CLINICAL DECISIONS SHOULD BE BASED ON THE PRIMARY CLINICAL RECORDS. [facility] [employer] [facility]. provides no warranty or guarantee of the accuracy or completeness of information in this document.
[2024-07-20 11:16] LABS: BOX Test Reference Lab UNITY; BOX Test Sent Out Y
[2024-07-20 11:20] LABS: Basophils Percent Auto 0.3 % (0.2-2.0); Eosinophils Absolute Auto 0.1 10^3/uL (0.0-0.7); Eosinophils Percent Auto 1.7 % (0.9-7.0); Hematocrit 34.2 % (36.0-48.0); Hemoglobin 11.3 g/dL (12.0-16.0); Immature Granulocytes Abs Auto 0.02 10^3/uL (0.00-0.03); Immature Granulocytes Pct Auto 0.3 % (0.0-0.5); Lymphocytes Absolute Auto 1.6 10^3/uL (1.2-3.8); Mean Corpuscular Hemoglobin 29.1 pg (26.7-34.0); Mean Corpuscular Volume 88.1 fL (81.0-99.0); Mean Platelet Volume 10.7 fL (9.5-13.5); Monocytes Absolute Auto 0.3 10^3/uL (0.3-0.8); Monocytes Percent Auto 4.1 % (1.7-12.0); Neutrophils Absolute Auto 5.7 10^3/uL (1.4-6.5); Neutrophils Percent Auto 73.6 % (43.0-75.0); Platelet Count 222 10^3/uL (150-450); Red Blood Count 3.88 10^6/uL (4.20-5.40); Red Cell Distribution Width 13.2 % (11.0-15.0); White Blood Count 7.8 10^3/uL (4.0-11.0)
[2024-07-20 11:28] LABS: Estimated Average Glucose 114 mg/dL; Glycohemoglobin A1C 5.6 % (4.5-6.2)
[2024-07-20 11:30] LABS: Amphetamine Screen Urine NEGATIVE (NEGATIVE); Barbiturates Screen Urine NEGATIVE (NEGATIVE); Benzodiazepines Screen Urine NEGATIVE (NEGATIVE); Buprenorphine Screen Urine NEGATIVE (NEGATIVE); Cannabinoid Screen Urine NEGATIVE (NEGATIVE); Cocaine Screen Urine NEGATIVE (NEGATIVE); Methadone Screen Urine NEGATIVE (NEGATIVE); Methamphetamines Screen Urine NEGATIVE (NEGATIVE); Opiate Screen Urine NEGATIVE (NEGATIVE); Oxycodone Screen Urine NEGATIVE (NEGATIVE); Phencyclidine Screen Urine NEGATIVE (NEGATIVE); Tricyclic Antidepressant Urine NEGATIVE (NEGATIVE)
[2024-07-21 06:10] LABS: HBsAg Screen Negative (Negative); HCV Ab Non Reactive (Non Reactive); HIV Ab/p24 Ag Screen Non Reactive (Non Reactive)
[2024-07-21 07:10] LABS: Rubella Antibodies, IgG 5.42 index (Immune >0.99)
[2024-07-21 12:09] LABS: Rapid Plasma Reagin, Quant Non Reactive titer (NonRea<1:1)
== END 2024-07-20 10:55 | disposition home or self-care (01) ==
LOC: LAB 10:55
PROVIDERS: PCP Internal Medicine; Visit Provider Obstetrics & Gynecology
DX: Z34.01 Encounter for supervision of normal first pregnancy, first trimester (principal); Z36.0 Encounter for antenatal screening for chromosomal anomalies; N92.6 Irregular menstruation, unspecified
CPT/HCPCS: 36415; 80307; 83036; 85025; 86592; 86762; 86803; 86850; 86900; 86901; 87086; 87340; 87389